=== PATIENT | male | born 1950 | race Caucasian/White ===

== ENCOUNTER → 2016-10-20 | Outpatient (CLI) | payer OTHER ==
[2016-10-20 12:40] LABS: BASO % 0.2 %; BASO ABS # 0.01 K/uL (0-0.2); COMPLETE YES; HEMATOCRIT 41.5 % (42-52); IG% 0.3 %; LYMPH ABS # 1.91 K/uL (1.2-3.4); MEAN CELL VOLUME 92.2 fL (80-100); MEAN CORPUSCULAR HGB CONC 34.7 g/dl (32-36); MONO % 6.2 %; NEUT % 61.3 %; PLATELET COUNT 300 K/uL (130-400); WHITE BLOOD COUNT 6.58 K/uL (4.8-10.8)
[2016-10-20 12:50] LABS: ALT/SGPT 27 U/L (12-78); AST/SGOT 22 U/L (15-37); BLOOD UREA NITROGEN 13 mg/dl (7-18); BUN/CREATININE RATIO 14.5 (10-20); CALCIUM 8.5 mg/dl (8.5-10.1); CARBON DIOXIDE 27 mmol/L (21-32); CHLORIDE 103 mmol/L (98-107); CREATININE 0.87 mg/dl (0.60-1.40); GLUCOSE 90 mg/dl (70-99); POTASSIUM 4.1 mmol/L (3.5-5.1); SODIUM 138 mmol/L (136-145)
[2016-10-20 12:58] LABS: ALB/GLOB RATIO 1.4 (0.9-2); ALKALINE PHOSPHATASE 66 U/L (45-117); CHOLESTEROL 208 mg/dl (0-200); CHOLESTEROL/HDL RATIO 2.8; HDL CHOLESTEROL 73 mg/dl; LDL CHOLESTEROL CALCULATED 119 mg/dl; TRIGLYCERIDES 82 mg/dl (0-150); VERY LOW DENSITY LIPOPROT CALC 16 mg/dl
== END | disposition home or self-care (01) ==
LOC: C.LABPBG 09:23
PROVIDERS: ATTEND Family Medicine
DX: G40.209 Localization-related (focal) (partial) symptomatic epilepsy and epileptic syndromes with complex partial seizures, not intractable, without status epilepticus (principal); E53.8 Deficiency of other specified B group vitamins; E78.5 Hyperlipidemia, unspecified; E03.9 Hypothyroidism, unspecified

== ENCOUNTER → 2017-06-03 | Outpatient (CLI) | payer OTHER ==
[2017-06-03 12:52] LABS: BASO % 0.4 %; BASO ABS # 0.03 K/uL (0-0.2); COMPLETE YES; IG% 0.1 %; LYMPH % 24.2 %; LYMPH ABS # 2.03 K/uL (1.2-3.4); MEAN CELL VOLUME 96.3 fL (80-100); MEAN CORPUSCULAR HEMOGLOBIN 32.8 pg (25-34); MEAN PLATELET VOLUME 10.1 fL (7.4-10.4); MONO % 8.3 %; PLATELET COUNT 313 K/uL (130-400); RED BLOOD COUNT 4.36 M/uL (4.7-6.1)
[2017-06-03 13:18] LABS: ALT/SGPT 24 U/L (12-78); AST/SGOT 23 U/L (15-37); BLOOD UREA NITROGEN 11 mg/dl (7-18); BUN/CREATININE RATIO 12.9 (10-20); CALCIUM 8.8 mg/dl (8.5-10.1); CARBON DIOXIDE 25 mmol/L (21-32); CHLORIDE 103 mmol/L (98-107); CREATININE 0.81 mg/dl (0.60-1.40); GLUCOSE 92 mg/dl (70-99); POTASSIUM 4.3 mmol/L (3.5-5.1); SODIUM 135 mmol/L (136-145)
[2017-06-03 13:29] LABS: ALB/GLOB RATIO 1.2 (0.9-2); ALKALINE PHOSPHATASE 78 U/L (45-117); CHOLESTEROL 203 mg/dl (0-200); CHOLESTEROL/HDL RATIO 2.4; HDL CHOLESTEROL 83 mg/dl; LDL CHOLESTEROL CALCULATED 98 mg/dl; TRIGLYCERIDES 112 mg/dl (0-150); VERY LOW DENSITY LIPOPROT CALC 22 mg/dl
== END | disposition home or self-care (01) ==
LOC: C.LABPBG 10:14
PROVIDERS: ATTEND Family Medicine
DX: G40.209 Localization-related (focal) (partial) symptomatic epilepsy and epileptic syndromes with complex partial seizures, not intractable, without status epilepticus (principal); E78.5 Hyperlipidemia, unspecified; E03.9 Hypothyroidism, unspecified

== ENCOUNTER → 2017-11-29 | Outpatient (CLI) | payer OTHER ==
[2017-11-29 13:11] LABS: BASO % 0.1 %; BASO ABS # 0.01 K/uL (0-0.2); EOS % 2.2 %; EOS ABS # 0.18 K/uL (0-0.5); HEMATOCRIT 38.3 % (42-52); HEMOGLOBIN 12.8 g/dL (14.0-18.0); IG# 0.02 K/uL (0.00-0.02); LYMPH % 24.7 %; LYMPH ABS # 2.03 K/uL (1.2-3.4); MEAN CORPUSCULAR HEMOGLOBIN 32.1 pg (25-34); MEAN CORPUSCULAR HGB CONC 33.4 g/dl (32-36); MEAN PLATELET VOLUME 9.7 fL (7.4-10.4); MONO % 10.6 %; MONO ABS # 0.87 K/uL (0.11-0.59); NEUT % 62.2 %; PLATELET COUNT 509 K/uL (130-400); RED CELL DISTRIBUTION WIDTH CV 13.4 % (11.5-14.5); RED CELL DISTRIBUTION WIDTH SD 46.5 fL (36.4-46.3); WHITE BLOOD COUNT 8.21 K/uL (4.8-10.8)
[2017-11-29 14:03] LABS: ALBUMIN 3.6 gm/dl (3.4-5.0); ALT/SGPT 20 U/L (12-78); AST/SGOT 15 U/L (15-37); BLOOD UREA NITROGEN 10 mg/dl (7-18); CALCIUM 8.4 mg/dl (8.5-10.1); CARBON DIOXIDE 25 mmol/L (21-32); CHOLESTEROL 179 mg/dl (0-200); CREATININE 0.78 mg/dl (0.60-1.40); GLUCOSE 91 mg/dl (70-99); POTASSIUM 4.2 mmol/L (3.5-5.1); SODIUM 136 mmol/L (136-145)
[2017-11-29 14:14] LABS: ALKALINE PHOSPHATASE 83 U/L (45-117); LDL CHOLESTEROL CALCULATED 105 mg/dl; TOTAL PROTEIN 7.4 gm/dl (6.4-8.2)
== END | disposition home or self-care (01) ==
LOC: C.LABPBG 09:41
PROVIDERS: ATTEND Family Medicine
DX: G40.209 Localization-related (focal) (partial) symptomatic epilepsy and epileptic syndromes with complex partial seizures, not intractable, without status epilepticus (principal); E78.5 Hyperlipidemia, unspecified; E03.9 Hypothyroidism, unspecified; E53.8 Deficiency of other specified B group vitamins

== ENCOUNTER 2019-01-04 05:26 | Inpatient (IN) ==
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
[2019-01-04] MEDS ORDERED: LR 15ML/HR IV SCH (06:00)
[2019-01-04] MEDS ORDERED: CLINDAMYCIN 900 MG / 50ML D5W IV SCH (06:00)
--- NOTE | 2019-01-04 06:57 | History & Physical Bridge Note ---
Date of Service January 04, 2019 History & Physical Bridge Note I have examined the patient, reviewed the History & Physical and in the interval since the performance of the History & Physical I have noted the following changes of clinical significance: no changes noted
[2019-01-04] MEDS ORDERED: ROCURONIUM BROMIDE 10 MG/ML 5 ML VIAL ONE (07:07)
[2019-01-04] MEDS ORDERED: PROPOFOL IV EMULSION 10 MG/ML 20 ML VIAL IV ONE (07:07)
[2019-01-04] MEDS ORDERED: LIDOCAINE HCL 2% 2 ML VIAL/AMP(20MG/ML) INFIL ONE (07:07)
[2019-01-04] MEDS ORDERED: fentaNYL citrate 100 MCG/2 ML VIAL ONE (07:08)
[2019-01-04] MEDS ORDERED: MIDAZOLAM HCL 1 MG/ML 2ML VIAL ONE (07:08)
[2019-01-04] MEDS ORDERED: BUPIVACAINE 0.5 % 5 MG/1 ML MPF 30ML VIAL ONE (07:14)
[2019-01-04] MEDS ORDERED: ONDANSETRON INJ 2 MG/ML 2 ML VIAL IV PRN ×2 (07:22→08:07)
[2019-01-04] MEDS ORDERED: LABETALOL HCL IV 5 MG/ML 20ML IV PRN (07:22)
[2019-01-04] MEDS ORDERED: ATROPINE SULFATE 0.1 MG/ML 10ML SYR IV PRN (07:22)
[2019-01-04] MEDS ORDERED: fentaNYL citrate 100 MCG/2 ML VIAL IV PRN (07:22)
[2019-01-04] MEDS ORDERED: ACETAMINOPHEN 1,000 MG/100 ML VIAL IV ONE (08:01)
--- NOTE | 2019-01-04 08:01 | Operative Report ---
Post Operative Report Pre & Post Diagnosis Operation Date: 01/04/19 07:15 <No data on this case meets the specified criteria> preop/ postop dx- Posterior neck abscess from MRSA Procedure Operation Date: 01/04/19 07:15 <No data on this case meets the specified criteria> Incision , Drainage, Debridement Posterior neck abscess Surgeon Tuan Shen MD, FACS Art Therapy Certified Supervisor nurses Estimated Blood Loss 10 Findings Consistent with Post-Op Diagnosis Specimens posterior neck tissue cultures Description of Procedure see dictation I attest to the content of the Intraoperative Record and any orders documented therein. Any exceptions are noted below.
[2019-01-04] MEDS ORDERED: MoRPHine SULFATE 4 MG/ML 1 ML CARP\\VIAL IV PRN (08:04)
[2019-01-04] MEDS ORDERED: MoRPHine SULFATE 2 MG/ML CARP IV PRN (08:04)
[2019-01-04] MEDS ORDERED: PROMETHAZINE HCL 12.5 MG in SODIUM CHLORIDE 0.9% 50 ML IV PRN (08:07)
[2019-01-04] MEDS ORDERED: HYDROCODONE/ACETAMOPHEN 5/325MG TAB PO PRN ×2 (08:07)
[2019-01-04] MEDS ORDERED: ONDANSETRON INJ 2 MG/ML 2 ML VIAL ONE (08:08)
[2019-01-04] MEDS ORDERED: GLYCOPYRROLATE 0.2 MG/ML VIAL ONE (08:08)
[2019-01-04] MEDS ORDERED: NEOSTIGMINE METHYLSULFATE 5 MG/5 ML SYR ONE (08:08)
[2019-01-04] MEDS ORDERED: CLINDAMYCIN 900 MG in DEXTROSE 5% 100 ML IV SCH (08:15)
--- NOTE | 2019-01-04 09:03 | Operative Report ---
DATE OF OPERATION: 01/04/2019 NAME OF OPERATION: Incision, drainage and debridement of posterior neck wound and abscess. STAFF SURGEON: Tuan Shen MD PREOPERATIVE DIAGNOSIS: Posterior neck wound with MRSA and abscess. POSTOPERATIVE DIAGNOSIS: Posterior neck wound with MRSA and abscess. ANESTHESIA: General. DESCRIPTION OF PROCEDURE: The patient was brought in the operating room and placed on the operating table in the supine position. After appropriate anesthetic, he was placed in left lateral decubitus position. His posterior neck was prepped and draped in usual fashion. He had a 7 cm wide area of induration with a 3 cm wide opening with necrotic tissue at the base. Essentially the tissue around the area was anesthetized using 0.5% plain Marcaine. Then incision made around the necrotic tissue and into the subcutaneous tissue which was necrotic showing areas of microabscess from the MRSA infection. The skin, subcutaneous tissue, fascia and small amount of muscle were all debrided. Cultures were sent. The tissue was sent for routine pathology. The surrounding tissue appeared to be viable without significant necrosis. It was packed with Betadine gauze, left open. A dressing was applied and patient transferred to recovery room in stable condition. I did have to ligate certain points using 2-0 chromic suture. I attest to the content of the Intraoperative Record and any orders documented therein. Any exception s are noted below.
--- NOTE | 2019-01-04 09:12 | Anesthesiology Progress Note ---
Date of Service January 04, 2019 Anesthesia Post Procedure Vital Signs Vital Signs: Temp Pulse Pulse Resp BP Pulse Ox 01/04/19 08:49 36.8 C 64 21 128/74 94 01/04/19 08:40 63 16 124/64 97 01/04/19 08:30 61 14 126/71 100 01/04/19 08:20 61 14 119/70 100 01/04/19 08:12 36.5 C 71 18 135/76 100 01/04/19 05:54 36.8 C 67 20 148/78 H 96 Transfer of Care Handoff Completed per policy Notes Mental Status: alert / awake / arousable Patient Amnestic to Procedure: Yes Nausea / Vomiting: adequately controlled Pain: adequately controlled Airway Patency, RR, SpO2: stable & adequate BP & HR: stable & adequate Hydration State: stable & adequate Anesthetic Complications: no major complications apparent
[2019-01-04] MEDS: SODIUM CHLORIDE 0.9% 1000ML 1,000 ML IV SCH (09:45)
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
[2019-01-04] MEDS: LEVOTHYROXINE SODIUM 137 MCG TABLET PO SCH (10:29)
[2019-01-04] MEDS: SIMVASTATIN 10 MG TAB PO SCH (10:29)
[2019-01-04] MEDS: DAPTOmycin 300 MG in SYRINGE 0 ML IV SCH (12:20)
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
[2019-01-05] MEDS: SODIUM CHLORIDE 0.9% 1000ML 1,000 ML IV SCH (04:45)
[2019-01-05] MEDS: LEVOTHYROXINE SODIUM 137 MCG TABLET PO SCH (06:17)
--- NOTE | 2019-01-05 07:39 | Progress Note ---
Date of Service January 05, 2019 Assessment & Plan (1) Abscess: awake, alert, afeb wound vac in place, surrounding tissue with min erythema on IV atbx- await sens- considering Picc- possible d/c tomorrow Subjective see A/P Results & Data Vital Signs (Past 12 Hours) Vital Signs Temp Pulse Resp BP Pulse Ox 01/05/19 07:27 36.5 C 65 16 136/72 95 01/05/19 03:44 36.8 C 59 L 18 133/73 97 01/04/19 23:17 36.5 C 50 L 16 106/61 95
[2019-01-05 07:53] LABS: Hematocrit (blood only) 36.3 % (42-52); Hemoglobin 12.2 g/dL (14.0-18.0); Mean Corpuscular Hgb Conc 33.6 g/dL (32-36); Mean Corpuscular Volume 96.5 fL (80-100); Mean Platelet Volume 9.1 fL (7.4-10.4); Platelet Count 373 K/uL (130-400); RDW Coefficient of Variation 12.8 % (11.5-14.5); RDW Standard Deviation 44.8 fL (36.4-46.3); Red Blood Count 3.76 M/uL (4.7-6.1)
[2019-01-05 08:02] LABS: INR 1.2 (0.9-1.1); Prothrombin Time 11.7 Seconds (9.0-12.0)
[2019-01-05 08:17] LABS: Creatinine Clr Calc Pharmacy 76.4 ml/min; Est GFR (African American) 99.9; Est GFR (Non-African American) 86.2
[2019-01-05] MEDS: DAPTOmycin 300 MG in SYRINGE 0 ML IV SCH (08:30)
[2019-01-05] MEDS: PHENobarbital 32.4 MG TAB PO SCH (08:30)
[2019-01-05] MEDS: SIMVASTATIN 10 MG TAB PO SCH (08:32)
[2019-01-05] MEDS: ENOXAPARIN INJ 40 MG/0.4 ML SYR SQ SCH (09:33)
--- NOTE | 2019-01-05 11:14 | Infectious Disease Progress Nt ---
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 He has declined IV abx at this time, would like to be d/c on po abx. will plan to d/c on doxy 100mg po bid x 21 days. will also plan to follow up at wound center post d/c from hospital and can extend duration or convert to IV if no clinical response. He and are in agreement with this. Ok for d/c from ID standpoint when otherwise stable. Subjective pt seen in followup, at bedside, s/p vac placement by wound care yesterday. min pain, plans to follow at wound center post d/c for vac care. OR culture growing S. aureus, final pending. outpatient culture growing CA-MRSA. Remains on Dapto. tolerating well. afebrile overnight. wbc 7. no f/c. no abd pain, no n/v/d, no cp, sob, cough. Review of Systems Review of Systems: All systems reviewed & are unremarkable except as noted in HPI & below Physical Exam Constitutional: WD/WN, vitals as above Eyes: PERRL, conjunctivae normal, anicteric sclerae ENMT: external ear and nose normal, oropharynx normal Neck: normal visual inspection Respiratory: normal respiratory effort, lungs clear to auscultation Cardiovascular: RRR, no murmur, no edema Gastrointestinal (Abdomen): normal bowel sounds, soft, nontender, no hepatosp lenomegaly Musculoskeletal: no cyanosis or clubbing, extremities motor strength 5/5 Skin: no rashes, warm and dry posterior neck vac in place, no surrounding warmth, min tenderness Psychiatric: A+Ox3, euthymic affect Results & Data Vital Signs (Past 12 Hours) Vital Signs Temp Pulse Resp BP Pulse Ox 01/05/19 07:27 36.5 C 65 16 136/72 95 01/05/19 03:44 36.8 C 59 L 18 133/73 97 01/04/19 23:17 36.5 C 50 L 16 106/61 95 Laboratory Results Microbiology 01/04/19 07:58 Neck Gram Stain - Final 01/04/19 07:58 Neck Aerobic and Anaerobic Culture - Preliminary Staphylococcus aureus
[2019-01-06] MEDS: SODIUM CHLORIDE 0.9% 1000ML 1,000 ML IV SCH (00:08)
[2019-01-06] MEDS: LEVOTHYROXINE SODIUM 137 MCG TABLET PO SCH (05:52)
[2019-01-06] MEDS: SIMVASTATIN 10 MG TAB PO SCH (08:22)
[2019-01-06] MEDS: PHENobarbital 32.4 MG TAB PO SCH (08:22)
[2019-01-06] MEDS: ENOXAPARIN INJ 40 MG/0.4 ML SYR SQ SCH (08:23)
[2019-01-06] MEDS: DAPTOmycin 300 MG in SYRINGE 0 ML IV SCH (08:23)
--- NOTE | 2019-01-06 08:41 | Surgery Progress Note ---
Date of Service January 06, 2019 Assessment & Plan (1) Abscess: wound vac change today ok for discharge Subjective no complaints Physical Exam Neck: wound vac in place, no erythema Results & Data Vital Signs (Past 12 Hours) Vital Signs Temp Pulse Resp BP Pulse Ox 01/06/19 07:45 36.7 C 60 16 138/78 92 01/05/19 23:13 37.0 C 65 14 138/79 96
--- NOTE | 2019-01-09 14:35 | Discharge Summary ---
PRINCIPAL DIAGNOSIS: Posterior neck abscess and infection. PROCEDURES: The patient underwent operative incision, drainage and debridement of posterior neck abscess. HISTORY OF PRESENT ILLNESS: The patient is a 68-year-old male with a history of abscess of the posterior neck area growing MRSA. HOSPITAL COURSE: The patient was brought into the hospital on 01/04/2019 where he underwent operative debridement and drainage of the abscessed area. It was left open and the culture did grow MRSA. He did have a wound VAC placed early on by the wound clinic and then did well. He was seen by infectious disease, placed on appropriate antibiotics and felt stable for discharge home on 01/06/2019 to be followed up in the wound clinic and surgical clinic.
== END 2019-01-06 10:50 | disposition home health service (06) | DRG 580 ==
LOC: ASU 05:26 → 3N 08:01